=== PATIENT | male | born 1965 | race Caucasian/White ===

== ENCOUNTER 2017-07-30 18:18 | Emergency (ER) | payer MEDICAID ==
[~2017-07-30] VITALS: Ht 188 cm; Wt 100.5 kg
[~2017-07-30 18:18] MED LIST: ASPI-1264 PO; ATOR10TA PO; DOCU-28 PO; HYDR-565 PO; LEVO300T27 PO; METO-477 PO; MUPI1OIN8 BOTHNARES
[2017-07-30 19:36] LABS: CLARITY,URINE CLEAR (Clear); COLOR,URINE YELLOW (Yellow); GLUCOSE, URINE NEGATIVE (Neg); KETONES,URINE NEGATIVE (Neg); LEUKOCYTE ESTERASE ,URINE NEGATIVE (Neg); NITRITES, URINE NEGATIVE (Neg); OCCULT BLOOD,URINE NEGATIVE (Neg); PROTEIN,URINE NEGATIVE (Neg); UROBILINOGEN,URINE 0.2 E.U/dL (0.2-1.0)
[2017-07-30 19:47] LABS: UA COLLECTION TYPE CLN CATCH MIDSTREAM
[2017-07-30 20:03] LABS: BASOPHILS % (AUTO) 0.5 % (0-1); EOSINOPHILS # (AUTO) 0.5 X10'3 (0-0.9); EOSINOPHILS % (AUTO) 5.6 % (0-6); HEMATOCRIT 42.9 % (42.0-52.0); HEMOGLOBIN 14.7 g/dl (14.0-17.9); LYMPHOCYTES # (AUTO) 2.5 X10'3 (1.1-4.8); LYMPHOCYTES % (AUTO) 25.9 % (21-51); MEAN CORPUSCULAR HGB CONC 34.2 % (33.0-36.5); MEAN CORPUSCULAR VOLUME 90.7 FL (78-98); MEAN PLATELET VOLUME 7.3 FL (7.4-10.4); MONOCYTES # (AUTO) 0.6 X10'3 (0-0.9); MONOCYTES % (AUTO) 5.9 % (2-12); NEUTROPHILS # (AUTO) 5.9 X10'3 (1.8-7.7); NEUTROPHILS % (AUTO) 62.1 % (42-75); PLATELET COUNT 249 X10'3 (140-440); RED BLOOD COUNT 4.73 X10'6 (4.70-6.10); RED CELL DISTRIBUTION WIDTH 14.3 % (11.5-14.5); WHITE BLOOD COUNT 9.6 X10'3 (4.5-11.0)
[2017-07-30 20:21] LABS: ALANINE AMINOTRANSFERASE 126 U/L (12-78); ALBUMIN 3.8 G/DL (3.4-5.0); ALBUMIN/GLOBULIN RATIO 1.2 (1.1-1.5); ALKALINE PHOSPHATASE 123 IU/L (46-116); ANION GAP 8 (8-16); ASPARTATE AMINO TRANSFERASE 128 U/L (10-37); BILIRUBIN,TOTAL 0.3 MG/DL (0.1-1.0); BLOOD UREA NITROGEN 28 MG/DL (7-18); BUN/CREATININE RATIO 13.8 (5.4-32.0); CALCIUM 8.6 MG/DL (8.5-10.1); CHLORIDE 104 MMOL/L (99-107); CREATININE 2.03 MG/DL (0.60-1.10); GLUCOSE 88 MG/DL (70-104); POTASSIUM 3.8 MMOL/L (3.5-5.1); SODIUM 141 MMOL/L (135-145); TOTAL CARBON DIOXIDE 28.6 MMOL/L (24-32); eGFR 35 ML/MIN
[2017-07-30] MEDS ORDERED: CYCL-1 PO (20:59)
[2017-07-30 21:14] VITALS: BP 122/72
== END 2017-07-30 21:16 | disposition home or self-care (01) ==
LOC: ER 18:18
DX: M54.6 Pain in thoracic spine (principal); M54.5 Low back pain; I12.9 Hypertensive chronic kidney disease with stage 1 through stage 4 chronic kidney disease, or unspecified chronic kidney disease; N18.9 Chronic kidney disease, unspecified; I25.10 Atherosclerotic heart disease of native coronary artery without angina pectoris; M10.9 Gout, unspecified; E03.9 Hypothyroidism, unspecified; F15.10 Other stimulant abuse, uncomplicated; Z95.1 Presence of aortocoronary bypass graft; Z98.890 Other specified postprocedural states; Z56.0 Unemployment, unspecified; Z79.82 Long term (current) use of aspirin; Z79.899 Other long term (current) drug therapy
CPT/HCPCS: 36415; 72100; 74176; 80053; 81003; 85025; 99285

== ENCOUNTER 2017-10-22 21:40 | Emergency (ER) | payer MEDICAID ==
[~2017-10-22] VITALS: Ht 190.5 cm; Wt 127.0 kg
[~2017-10-22 21:40] MED LIST changes: +CEPH500C5 PO; +COLC1TAB2 PO; +CYCL-1 PO
[2017-10-22 22:55] LABS: ALANINE AMINOTRANSFERASE 75 U/L (12-78); ALBUMIN 3.7 G/DL (3.4-5.0); ALBUMIN/GLOBULIN RATIO 1.2 (1.1-1.5); ALKALINE PHOSPHATASE 142 IU/L (46-116); ANION GAP 9 (8-16); ASPARTATE AMINO TRANSFERASE 38 U/L (10-37); BILIRUBIN,TOTAL 0.3 MG/DL (0.1-1.0); BLOOD UREA NITROGEN 23 MG/DL (7-18); BUN/CREATININE RATIO 14.3 (5.4-32.0); CALCIUM 8.9 MG/DL (8.5-10.1); CHLORIDE 109 MMOL/L (99-107); CREATININE 1.61 MG/DL (0.60-1.10); GLUCOSE 120 MG/DL (70-104); POTASSIUM 4.8 MMOL/L (3.5-5.1); SODIUM 144 MMOL/L (135-145); TOTAL CARBON DIOXIDE 25.8 MMOL/L (24-32); TOTAL PROTEIN 6.8 G/DL (6.4-8.2); eGFR 46 ML/MIN
[2017-10-22 22:57] LABS: LIPASE 181 U/L (73-393); TROPONIN I < 0.04 NG/ML (0.0-0.05)
[2017-10-22 22:58] LABS: BASOPHILS # (AUTO) 0.1 X10'3 (0-0.2); BASOPHILS % (AUTO) 0.7 % (0-1); EOSINOPHILS # (AUTO) 0.5 X10'3 (0-0.9); EOSINOPHILS % (AUTO) 7.5 % (0-6); HEMATOCRIT 40.6 % (42.0-52.0); HEMOGLOBIN 13.9 g/dl (14.0-17.9); LYMPHOCYTES # (AUTO) 2.1 X10'3 (1.1-4.8); LYMPHOCYTES % (AUTO) 29.4 % (21-51); MEAN CORPUSCULAR HEMOGLOBIN 31.8 PG (27.0-31.0); MEAN CORPUSCULAR HGB CONC 34.4 % (33.0-36.5); MEAN CORPUSCULAR VOLUME 92.5 FL (78-98); MEAN PLATELET VOLUME 7.8 FL (7.4-10.4); MONOCYTES # (AUTO) 0.6 X10'3 (0-0.9); MONOCYTES % (AUTO) 7.9 % (2-12); NEUTROPHILS # (AUTO) 3.9 X10'3 (1.8-7.7); NEUTROPHILS % (AUTO) 54.5 % (42-75); PLATELET COUNT 191 X10'3 (140-440); RED BLOOD COUNT 4.38 X10'6 (4.70-6.10); RED CELL DISTRIBUTION WIDTH 13.8 % (11.5-14.5); WHITE BLOOD COUNT 7.1 X10'3 (4.5-11.0)
[2017-10-22 23:04] LABS: CLARITY,URINE CLEAR (Clear); COLOR,URINE YELLOW (Yellow); GLUCOSE, URINE NEGATIVE (Neg); KETONES,URINE NEGATIVE (Neg); LEUKOCYTE ESTERASE ,URINE NEGATIVE (Neg); NITRITES, URINE NEGATIVE (Neg); OCCULT BLOOD,URINE TRACE-INTACT (Neg); PROTEIN,URINE NEGATIVE (Neg); UROBILINOGEN,URINE 0.2 E.U/dL (0.2-1.0)
[2017-10-22] MEDS ORDERED: normal saline 1000ML IV soln IVB ONE (23:05)
[2017-10-22] MEDS ORDERED: ondansetron/PF 4mg/2ml inj IV ONE ×2 (23:05)
[2017-10-22 23:09] LABS: UA COLLECTION TYPE CLN CATCH MIDSTREAM
[2017-10-22 23:27] LABS: BACTERIA,URINE NONE SEEN /HPF (Neg); RBC,URINE 0-2 /HPF (0-2); WBC,URINE 0-4 /HPF (0-4)
[2017-10-22 23:28] LABS: MUCUS STRANDS NONE SEEN /LPF (Neg); SQUAMOUS EPITHELIAL CELL,UR FEW /LPF (FEW)
[2017-10-23] MEDS ORDERED: HYDR-565 PO (00:05)
[2017-10-23 00:13] VITALS: BP 123/70
== END 2017-10-23 00:14 | disposition home or self-care (01) ==
LOC: ER 21:40
DX: R07.89 Other chest pain (principal); R10.9 Unspecified abdominal pain; F17.200 Nicotine dependence, unspecified, uncomplicated; F15.90 Other stimulant use, unspecified, uncomplicated; I25.10 Atherosclerotic heart disease of native coronary artery without angina pectoris; I12.9 Hypertensive chronic kidney disease with stage 1 through stage 4 chronic kidney disease, or unspecified chronic kidney disease; N18.9 Chronic kidney disease, unspecified; E03.9 Hypothyroidism, unspecified; Z79.82 Long term (current) use of aspirin; Z79.899 Other long term (current) drug therapy; Z98.890 Other specified postprocedural states; Z98.61 Coronary angioplasty status; Z56.0 Unemployment, unspecified
CPT/HCPCS: 36415; 71045; 80053; 81001; 83690; 84484; 85025; 93005; 96374; 99285; J2405

== ENCOUNTER 2019-03-13 20:28 | Inpatient (IN) | payer MEDICAID ==
[~2019-03-13] VITALS: Ht 188 cm; Wt 145.4 kg
[~2019-03-13 20:28] MED LIST changes: -CEPH500C5 PO; +HYDR-4353 PO; -HYDR-565 PO
--- NOTE | 2019-03-13 21:03 | NUR ---
XR at bedside.
[2019-03-13 21:25] LABS: BASOPHILS # (AUTO) 0.1 X10'3 (0-0.2); BASOPHILS % (AUTO) 0.7 % (0-1); EOSINOPHILS # (AUTO) 0.4 X10'3 (0-0.9); EOSINOPHILS % (AUTO) 5.1 % (0-6); HEMATOCRIT 39.9 % (42.0-52.0); HEMOGLOBIN 13.5 g/dl (14.0-17.9); LYMPHOCYTES # (AUTO) 1.4 X10'3 (1.1-4.8); LYMPHOCYTES % (AUTO) 17.1 % (21-51); MEAN CORPUSCULAR HEMOGLOBIN 32.3 PG (27.0-31.0); MEAN CORPUSCULAR HGB CONC 33.8 g/dL (33.0-36.5); MEAN CORPUSCULAR VOLUME 95.7 FL (78-98); MEAN PLATELET VOLUME 7.6 FL (7.4-10.4); MONOCYTES # (AUTO) 0.4 X10'3 (0-0.9); MONOCYTES % (AUTO) 5.4 % (2-12); NEUTROPHILS # (AUTO) 5.9 X10'3 (1.8-7.7); NEUTROPHILS % (AUTO) 71.7 % (42-75); PLATELET COUNT 153 X10'3 (140-440); RED BLOOD COUNT 4.17 X10'6 (4.70-6.10); RED CELL DISTRIBUTION WIDTH 15.8 % (11.5-14.5); WHITE BLOOD COUNT 8.2 X10'3 (4.5-11.0)
[2019-03-13 21:37] LABS: ALANINE AMINOTRANSFERASE 67 U/L (12-78); ALBUMIN 3.9 G/DL (3.4-5.0); ALKALINE PHOSPHATASE 129 IU/L (46-116); ANION GAP 10 (8-16); ASPARTATE AMINO TRANSFERASE 40 U/L (10-37); BILIRUBIN,TOTAL 0.3 MG/DL (0.1-1.0); BLOOD UREA NITROGEN 22 MG/DL (7-18); BUN/CREATININE RATIO 13.3 (5.4-32.0); CALCIUM 8.6 MG/DL (8.5-10.1); CHLORIDE 106 MMOL/L (99-107); CREATININE 1.66 MG/DL (0.60-1.10); D-DIMER 4.38 MG/L FEU (0-0.50); GLUCOSE 134 MG/DL (70-104); PARTIAL THROMBOPLASTIN TIME 27 SECONDS (22-32); POTASSIUM 4.4 MMOL/L (3.5-5.1); SODIUM 140 MMOL/L (135-145); TOTAL CARBON DIOXIDE 24.3 MMOL/L (24-32); TOTAL PROTEIN 7.7 G/DL (6.4-8.2); eGFR 44 ML/MIN
--- NOTE | 2019-03-13 21:38 | NUR ---
VASCULAR US TECH AT BEDSIDE FOR LLE US.
[2019-03-13] MEDS ORDERED: normal saline 1000ml 1,000 ML IV ONE (22:05)
[2019-03-13] MEDS ORDERED: heparin 10,000 units/1 ML INJ IV ONE (22:05)
[2019-03-13] MEDS ORDERED: iohexol 350MG/ML 100ml bottle IV ONE (22:06)
--- NOTE | 2019-03-13 22:27 | NUR ---
automotive diagnostic technician at bedside.
[2019-03-13] MEDS: heparin 25,000 UNIT/250ml bag 250 ML IV SCH (22:42)
[2019-03-13] MEDS ORDERED: heparin 25,000 UNIT/250ml bag 250 ML IV SCH (23:18)
[2019-03-13] MEDS ORDERED: acetaminophen 325mg tablet PO PRN ×2 (23:20)
[2019-03-13] MEDS ORDERED: magnesium hydroxide 30ml (MOM) UD suspension PO PRN (23:20)
[2019-03-13] MEDS ORDERED: ondansetron/PF 4mg/2ml inj IV PRN (23:20)
[2019-03-13] MEDS ORDERED: mag hydrox/Alum hydrox/simeth 30ml oral suspension PO PRN (23:20)
[2019-03-13] MEDS ORDERED: heparin 10,000 units/1 ML INJ IV PRN (23:20)
[2019-03-14 00:30] VITALS: BP 143/98
--- NOTE | 2019-03-14 00:30 | NUR ---
PATIENT ADMITTED TO ROOM 345A FROM ER FOR PE AND DVT OF LEFT LOWER LEG. PLACED COMFORTABLE IN BED. VITAL SIGNS TAKEN AND RECORDED.
[2019-03-14] MEDS: HYDROcodone/acetaminophen 5mg/325mg tablet PO PRN (03:42)
[2019-03-14 04:12] LABS: BASOPHILS # (AUTO) 0.1 X10'3 (0-0.2); BASOPHILS % (AUTO) 0.8 % (0-1); EOSINOPHILS # (AUTO) 0.5 X10'3 (0-0.9); HEMATOCRIT 37.5 % (42.0-52.0); HEMOGLOBIN 12.9 g/dl (14.0-17.9); LYMPHOCYTES # (AUTO) 1.9 X10'3 (1.1-4.8); LYMPHOCYTES % (AUTO) 24.2 % (21-51); MEAN CORPUSCULAR HEMOGLOBIN 32.4 PG (27.0-31.0); MEAN CORPUSCULAR HGB CONC 34.3 g/dL (33.0-36.5); MEAN CORPUSCULAR VOLUME 94.4 FL (78-98); MEAN PLATELET VOLUME 7.5 FL (7.4-10.4); MONOCYTES # (AUTO) 0.5 X10'3 (0-0.9); MONOCYTES % (AUTO) 6.9 % (2-12); NEUTROPHILS # (AUTO) 4.9 X10'3 (1.8-7.7); NEUTROPHILS % (AUTO) 62.1 % (42-75); PLATELET COUNT 143 X10'3 (140-440); RED BLOOD COUNT 3.97 X10'6 (4.70-6.10); RED CELL DISTRIBUTION WIDTH 15.8 % (11.5-14.5); WHITE BLOOD COUNT 7.8 X10'3 (4.5-11.0)
[2019-03-14 04:23] LABS: ALBUMIN 3.5 G/DL (3.4-5.0); ANION GAP 9 (8-16); BLOOD UREA NITROGEN 18 MG/DL (7-18); CALCIUM 8.9 MG/DL (8.5-10.1); CHLORIDE 105 MMOL/L (99-107); GLUCOSE 117 MG/DL (70-104); POTASSIUM 3.9 MMOL/L (3.5-5.1); SODIUM 139 MMOL/L (135-145); TOTAL CARBON DIOXIDE 24.9 MMOL/L (24-32); eGFR 49 ML/MIN
--- NOTE | 2019-03-14 04:45 | NUR ---
HEPARIN PTT 55, NO CHANGED IN RATE OF HEPARIN DRIP.
[2019-03-14 07:15] VITALS: BP 91/50
[2019-03-14] MEDS: metoprolol tartrate 50mg tablet PO SCH ×2 (07:47→20:43)
[2019-03-14] MEDS: levoTHYROXINE 175mcg tablet PO SCH (07:53)
[2019-03-14] MEDS: atorvastatin 20mg tablet PO SCH (07:53)
[2019-03-14] MEDS: aspirin 325mg tablet PO SCH (07:53)
[2019-03-14] MEDS: heparin 25,000 UNIT/250ml bag 250 ML IV SCH ×4 (10:19→23:15)
[2019-03-14] MEDS: heparin 10,000 units/1 ML INJ IV PRN ×2 (10:20→23:17)
[2019-03-14 11:00] VITALS: BP 96/56
--- NOTE | 2019-03-14 16:45 | NUR ---
DVT PTT 47 - therapeutic. no changes.
--- NOTE | 2019-03-14 18:00 | NUR ---
Problems reprioritized. Patient report given, questions answered & plan of care reviewed with FERNANDEZ Monreal.
[2019-03-14 20:00] VITALS: BP 101/53
[2019-03-15] VITALS: BP 101/55
[2019-03-15] MEDS: HYDROcodone/acetaminophen 5mg/325mg tablet PO PRN ×2 (02:58→07:33)
[2019-03-15 06:13] LABS: BASOPHILS # (AUTO) 0.1 X10'3 (0-0.2); BASOPHILS % (AUTO) 0.8 % (0-1); EOSINOPHILS # (AUTO) 0.5 X10'3 (0-0.9); EOSINOPHILS % (AUTO) 5.9 % (0-6); HEMATOCRIT 39.6 % (42.0-52.0); HEMOGLOBIN 13.6 g/dl (14.0-17.9); LYMPHOCYTES % (AUTO) 23.1 % (21-51); MEAN CORPUSCULAR HEMOGLOBIN 32.8 PG (27.0-31.0); MEAN CORPUSCULAR HGB CONC 34.4 g/dL (33.0-36.5); MEAN CORPUSCULAR VOLUME 95.4 FL (78-98); MEAN PLATELET VOLUME 7.9 FL (7.4-10.4); MONOCYTES # (AUTO) 0.7 X10'3 (0-0.9); MONOCYTES % (AUTO) 8.4 % (2-12); NEUTROPHILS # (AUTO) 5.4 X10'3 (1.8-7.7); NEUTROPHILS % (AUTO) 61.8 % (42-75); PLATELET COUNT 172 X10'3 (140-440); RED BLOOD COUNT 4.15 X10'6 (4.70-6.10); RED CELL DISTRIBUTION WIDTH 15.8 % (11.5-14.5); WHITE BLOOD COUNT 8.8 X10'3 (4.5-11.0)
[2019-03-15] MEDS: heparin 25,000 UNIT/250ml bag 250 ML IV SCH (06:32)
[2019-03-15 06:34] LABS: ALBUMIN 3.5 G/DL (3.4-5.0); ANION GAP 9 (8-16); BLOOD UREA NITROGEN 18 MG/DL (7-18); BUN/CREATININE RATIO 12.9 (5.4-32.0); CALCIUM 8.9 MG/DL (8.5-10.1); CHLORIDE 105 MMOL/L (99-107); GLUCOSE 124 MG/DL (70-104); POTASSIUM 4.7 MMOL/L (3.5-5.1); SODIUM 141 MMOL/L (135-145); TOTAL CARBON DIOXIDE 26.7 MMOL/L (24-32); eGFR 53 ML/MIN
--- NOTE | 2019-03-15 06:52 | NUR ---
Patient in room [facility]. I have received report from Jocelin PRESLEY and had the opportunity to ask questions and assume patient care.
--- NOTE | 2019-03-15 06:56 | NUR ---
Patient in room [facility]. I have received report from AMBERLY PRESLEY and had the opportunity to ask questions and assume patient care.
[2019-03-15] MEDS: atorvastatin 20mg tablet PO SCH (07:24)
[2019-03-15] MEDS: aspirin 325mg tablet PO SCH (07:24)
[2019-03-15] MEDS: levoTHYROXINE 175mcg tablet PO SCH (07:25)
[2019-03-15] MEDS: metoprolol tartrate 50mg tablet PO SCH (07:34)
[2019-03-15 07:36] VITALS: BP 110/61
[2019-03-15 11:00] VITALS: BP 105/67
[2019-03-15] MEDS ORDERED: APIX5TAB3 PO (11:37)
--- NOTE | 2019-03-15 13:32 | NUR ---
Pt discharged home per Dr Bond orders. all meds and D/C instruction given to patient. New prescription sent [facility]. Pt D/C home by private vehicle accompanied by self in stable conditions.
--- NOTE | 2019-03-15 13:33 | NUR ---
Student documentation: I have reviewed all interventions, assessments performed and documented by .Juan Francisco GARCIA
[2019-03-16] MEDS ORDERED: HYDR-3965 PO (13:19)
== END 2019-03-15 13:14 | disposition home or self-care (01) | DRG 197 ==
LOC: ER 20:28 → ED HOLD 23:42 → SUR 3N 03-14 00:30
PROVIDERS: ADMIT Hospitalist; ATTEND Family Medicine
PROC: B32T1ZZ Computerized Tomography (CT Scan) of Left Pulmonary Artery using Low Osmolar Contrast (ICD-10-PCS; principal; 2019-03-13)
PROC: B3201ZZ Computerized Tomography (CT Scan) of Thoracic Aorta using Low Osmolar Contrast (ICD-10-PCS; 2019-03-13)
PROC: B32S1ZZ Computerized Tomography (CT Scan) of Right Pulmonary Artery using Low Osmolar Contrast (ICD-10-PCS; 2019-03-13)
DX: I82.412 Acute embolism and thrombosis of left femoral vein (principal); I26.99 Other pulmonary embolism without acute cor pulmonale; D64.9 Anemia, unspecified; E03.9 Hypothyroidism, unspecified; F15.10 Other stimulant abuse, uncomplicated; I82.532 Chronic embolism and thrombosis of left popliteal vein; F17.210 Nicotine dependence, cigarettes, uncomplicated; F41.8 Other specified anxiety disorders; I12.9 Hypertensive chronic kidney disease with stage 1 through stage 4 chronic kidney disease, or unspecified chronic kidney disease; I25.10 Atherosclerotic heart disease of native coronary artery without angina pectoris; M10.9 Gout, unspecified; N18.9 Chronic kidney disease, unspecified; Z95.1 Presence of aortocoronary bypass graft
CPT/HCPCS: 36415; 71045; 71275; 80048; 80053; 81479; 83880; 83891; 83894; 83898; 84443; 84484; 85025; 85240; 85379; 85610; 85730; 86147; 87081; 93005; 93306; 93971; 96361; 96374; 96375; 97116; 97161; 97530; 99285; G0378; J1644; Q9967

== ENCOUNTER 2019-03-16 10:43 | Emergency (ER) | payer MEDICAID ==
[~2019-03-16] VITALS: Ht 188 cm; Wt 145.4 kg
[~2019-03-16 10:43] MED LIST changes: +APIX5TAB3 PO; -ASPI-1264 PO; -COLC1TAB2 PO; -CYCL-1 PO; -DOCU-28 PO; -HYDR-4353 PO; -MUPI1OIN8 BOTHNARES
[2019-03-16] MEDS ORDERED: HYDROcodone/acetaminophen 10/325mg tab PO ONE (11:55)
[2019-03-16 12:36] LABS: BASOPHILS # (AUTO) 0.1 X10'3 (0-0.2); BASOPHILS % (AUTO) 0.9 % (0-1); EOSINOPHILS # (AUTO) 0.3 X10'3 (0-0.9); EOSINOPHILS % (AUTO) 3.6 % (0-6); HEMATOCRIT 40.5 % (42.0-52.0); HEMOGLOBIN 13.7 g/dl (14.0-17.9); LYMPHOCYTES # (AUTO) 1.3 X10'3 (1.1-4.8); LYMPHOCYTES % (AUTO) 14.7 % (21-51); MEAN CORPUSCULAR HEMOGLOBIN 32.4 PG (27.0-31.0); MEAN CORPUSCULAR HGB CONC 33.8 g/dL (33.0-36.5); MEAN CORPUSCULAR VOLUME 95.6 FL (78-98); MEAN PLATELET VOLUME 7.2 FL (7.4-10.4); MONOCYTES # (AUTO) 0.6 X10'3 (0-0.9); MONOCYTES % (AUTO) 6.7 % (2-12); NEUTROPHILS # (AUTO) 6.7 X10'3 (1.8-7.7); NEUTROPHILS % (AUTO) 74.1 % (42-75); PLATELET COUNT 192 X10'3 (140-440); RED BLOOD COUNT 4.23 X10'6 (4.70-6.10); RED CELL DISTRIBUTION WIDTH 15.4 % (11.5-14.5); WHITE BLOOD COUNT 9.1 X10'3 (4.5-11.0)
[2019-03-16 12:57] LABS: ALANINE AMINOTRANSFERASE 47 U/L (12-78); ALBUMIN 3.6 G/DL (3.4-5.0); ALBUMIN/GLOBULIN RATIO 0.8 (1.1-1.5); ALKALINE PHOSPHATASE 117 IU/L (46-116); ANION GAP 8 (8-16); ASPARTATE AMINO TRANSFERASE 28 U/L (10-37); BILIRUBIN,TOTAL 0.5 MG/DL (0.1-1.0); BLOOD UREA NITROGEN 13 MG/DL (7-18); BUN/CREATININE RATIO 9.1 (5.4-32.0); CALCIUM 8.7 MG/DL (8.5-10.1); CHLORIDE 103 MMOL/L (99-107); CREATININE 1.43 MG/DL (0.60-1.10); GLUCOSE 151 MG/DL (70-104); POTASSIUM 4.1 MMOL/L (3.5-5.1); SODIUM 136 MMOL/L (135-145); TOTAL CARBON DIOXIDE 24.6 MMOL/L (24-32); TOTAL PROTEIN 7.9 G/DL (6.4-8.2); eGFR 52 ML/MIN
[2019-03-16] MEDS ORDERED: enoxaparin 100mg/ml syringe SUBCUT ONE (13:15)
[2019-03-16] MEDS ORDERED: HYDR-3965 PO (13:19)
[2019-03-16] MEDS ORDERED: enoxaparin 30mg/0.3ml syringe SUBCUT ONE (13:25)
[2019-03-16] MEDS ORDERED: enoxaparin 60mg/0.6ml syringe SUBCUT ONE ×2 (13:25)
[2019-03-16] MEDS ORDERED: enoxaparin 50mg/0.5ml (from 3ml vial) syringe SUBCUT ONE (13:55)
--- NOTE | 2019-03-16 13:57 | NUR ---
CALL TO PHARM FOR LOVENOX CHANGE. WAS ORDERED 3 SHOTS PHARM WILL MAKE INTO `1 OR 2 SHOTS WAITING FOR MED
[2019-03-16 14:19] VITALS: BP 131/85
== END 2019-03-16 14:20 | disposition home or self-care (01) ==
LOC: ER 10:44
DX: I82.402 Acute embolism and thrombosis of unspecified deep veins of left lower extremity (principal); I25.10 Atherosclerotic heart disease of native coronary artery without angina pectoris; I12.9 Hypertensive chronic kidney disease with stage 1 through stage 4 chronic kidney disease, or unspecified chronic kidney disease; N18.9 Chronic kidney disease, unspecified; E03.9 Hypothyroidism, unspecified; F41.9 Anxiety disorder, unspecified; F32.9 Major depressive disorder, single episode, unspecified; F15.90 Other stimulant use, unspecified, uncomplicated; F10.99 Alcohol use, unspecified with unspecified alcohol-induced disorder; Z95.1 Presence of aortocoronary bypass graft; Z98.890 Other specified postprocedural states; Z56.0 Unemployment, unspecified; Z79.899 Other long term (current) drug therapy; Y90.9 Presence of alcohol in blood, level not specified
CPT/HCPCS: 36415; 71045; 80053; 85025; 85610; 93005; 96372; 99284; J1650

== ENCOUNTER 2019-04-27 07:25 | Emergency (ER) | payer MEDICAID ==
[~2019-04-27] VITALS: Ht 188 cm; Wt 136.0 kg
[2019-04-27 08:05] LABS: BASOPHILS # (AUTO) 0.1 X10'3 (0-0.2); BASOPHILS % (AUTO) 1.1 % (0-1); EOSINOPHILS # (AUTO) 0.3 X10'3 (0-0.9); EOSINOPHILS % (AUTO) 3.2 % (0-6); HEMATOCRIT 42.1 % (42.0-52.0); HEMOGLOBIN 14.3 g/dl (14.0-17.9); LYMPHOCYTES # (AUTO) 1.6 X10'3 (1.1-4.8); LYMPHOCYTES % (AUTO) 18.6 % (21-51); MEAN CORPUSCULAR HEMOGLOBIN 32.2 PG (27.0-31.0); MEAN CORPUSCULAR HGB CONC 33.9 g/dL (33.0-36.5); MEAN CORPUSCULAR VOLUME 94.8 FL (78-98); MEAN PLATELET VOLUME 7.7 FL (7.4-10.4); MONOCYTES # (AUTO) 0.8 X10'3 (0-0.9); MONOCYTES % (AUTO) 9.8 % (2-12); NEUTROPHILS # (AUTO) 5.7 X10'3 (1.8-7.7); NEUTROPHILS % (AUTO) 67.3 % (42-75); PLATELET COUNT 205 X10'3 (140-440); RED BLOOD COUNT 4.44 X10'6 (4.70-6.10); RED CELL DISTRIBUTION WIDTH 15.9 % (11.5-14.5); WHITE BLOOD COUNT 8.4 X10'3 (4.5-11.0)
[2019-04-27 08:38] LABS: ALANINE AMINOTRANSFERASE 50 U/L (12-78); ALBUMIN 4.1 G/DL (3.4-5.0); ALKALINE PHOSPHATASE 136 IU/L (46-116); ANION GAP 9 (8-16); ASPARTATE AMINO TRANSFERASE 21 U/L (10-37); BILIRUBIN,TOTAL 0.5 MG/DL (0.1-1.0); BLOOD UREA NITROGEN 15 MG/DL (7-18); BUN/CREATININE RATIO 9.2 (5.4-32.0); CALCIUM 8.6 MG/DL (8.5-10.1); CHLORIDE 103 MMOL/L (99-107); CREATININE 1.63 MG/DL (0.60-1.10); GLUCOSE 119 MG/DL (70-104); POTASSIUM 4.1 MMOL/L (3.5-5.1); SODIUM 140 MMOL/L (135-145); TOTAL CARBON DIOXIDE 27.8 MMOL/L (24-32); TOTAL PROTEIN 8.3 G/DL (6.4-8.2); eGFR 45 ML/MIN
[2019-04-27] MEDS ORDERED: HYDROcodone/acetaminophen 10/325mg tab PO ONE (09:15)
--- NOTE | 2019-04-27 10:06 | NUR ---
breaking primary RN, pt is laying on his left side, eyes closed, VSS as charted, no needs at this time, awaiting VS result
[2019-04-27] MEDS ORDERED: HYDR-4383 PO (10:28)
[2019-04-27 10:33] VITALS: BP 109/70
== END 2019-04-27 10:47 | disposition home or self-care (01) ==
LOC: ER 07:25
DX: M79.604 Pain in right leg (principal); M79.605 Pain in left leg; R06.02 Shortness of breath; I25.10 Atherosclerotic heart disease of native coronary artery without angina pectoris; I12.9 Hypertensive chronic kidney disease with stage 1 through stage 4 chronic kidney disease, or unspecified chronic kidney disease; N18.9 Chronic kidney disease, unspecified; E03.9 Hypothyroidism, unspecified; F41.9 Anxiety disorder, unspecified; F32.9 Major depressive disorder, single episode, unspecified; F15.90 Other stimulant use, unspecified, uncomplicated; Z95.1 Presence of aortocoronary bypass graft; Z98.890 Other specified postprocedural states; Z56.0 Unemployment, unspecified; Z79.01 Long term (current) use of anticoagulants; Z79.899 Other long term (current) drug therapy
CPT/HCPCS: 36415; 71045; 80053; 84484; 85025; 93005; 93971; 99284

== ENCOUNTER 2019-09-06 13:33 | Emergency (ER) | payer MEDICAID ==
[~2019-09-06] VITALS: Ht 188 cm; Wt 123.6 kg
[~2019-09-06 13:33] MED LIST changes: +HYDR-4383 PO
[2019-09-06 13:57] VITALS: BP 99/72
[2019-09-06] MEDS ORDERED: acetaminophen 325mg tablet PO ONE (14:55)
== END 2019-09-06 15:25 | disposition home or self-care (01) ==
LOC: ER 13:34
DX: R07.89 Other chest pain (principal); I25.10 Atherosclerotic heart disease of native coronary artery without angina pectoris; M10.9 Gout, unspecified; E03.9 Hypothyroidism, unspecified; F15.90 Other stimulant use, unspecified, uncomplicated; I12.9 Hypertensive chronic kidney disease with stage 1 through stage 4 chronic kidney disease, or unspecified chronic kidney disease; N18.9 Chronic kidney disease, unspecified; F17.200 Nicotine dependence, unspecified, uncomplicated; Z95.1 Presence of aortocoronary bypass graft; Z98.890 Other specified postprocedural states; Z56.0 Unemployment, unspecified; Z79.899 Other long term (current) drug therapy; Z79.01 Long term (current) use of anticoagulants
CPT/HCPCS: 71046; 99283

== ENCOUNTER 2025-04-26 14:00 | Emergency (ER) | payer MEDICAID ==
[~2025-04-26] VITALS: Ht 188 cm; Wt 124.3 kg
[2025-04-26 14:29] VITALS: BP 145/103; PULSE 110; RESP 18; TEMP 98; O2SAT 94
== END 2025-04-26 20:43 | disposition left against medical advice (07) ==
LOC: ER 14:00
DX: R73.9 Hyperglycemia, unspecified (principal)
CPT/HCPCS: 82948; 99281